=== PATIENT | female | born 1970 | race Caucasian/White ===

== ENCOUNTER → 2018-01-08 09:32 | Outpatient (CLI) | payer OTHER ==
[2015-06-08 07:16] VITALS: BMI 46.0
[~2018-01-08 09:32] MED LIST: ALBUTEROL INH; BAYER CHEWABLE81 MG PO; CARDIZEM30 MG PO; CELEXA20 MG PO; DEMADEX20 MG PO; FERROUS SULFAT325 MG PO; IPRAT-ALBUT 0.5-3 ML UPD; ISOSORBIDE MONO60 M1 PO; K-DUR20 MEQ PO; MINIVELLE TP; NORCO 10/325 TA1 TA1 PO; PRILOSEC20 MG PO; SYMBICORT 16010.2 GM INH; VALIUM10 MG PO; VENTOLIN HFA18 GM INH; VITAMIN B-121000 MCG PO; VITAMIN D250000 UNIT PO; VITAMIN D31000 UNI2 PO; VITAMIN D31000 UNIT PO; VOLTAREN75 MG PO; ZYRTEC10 MG PO
== END | disposition home or self-care (01) ==
LOC: D.CT 09:00
DX: R10.9 Unspecified abdominal pain (principal)

== ENCOUNTER 2018-03-17 10:28 | Day surgery (SDC) | payer OTHER ==
[~2018-03-17] VITALS: Ht 154.9 cm; Wt 109.1 kg
--- NOTE | ~2018-03-17 | OP ---
PATIENT NAME: SU COLLINS MEDICAL RECORD: [id number] :74 [facility] ADMISS[facility] DATE: SURGEON: DEEPA BLOCK DO DATE OF OPERATION: 03/17/2018 PROCEDURE: Colonoscopy with polypectomy and biopsies. INDICATIONS FOR PROCEDURE: Hematochezia, altered bowel function, right lower quadrant abdominal pain. SCOPE: Olympus video pediatric colonoscope. MEDICATIONS: Propofol 280 mg IV per anesthesia. WITHDRAWAL TIME: 6 minutes. ESTIMATED BLOOD LOSS: Minimal. COMPLICATIONS: None. FINDINGS: Informed consent was given. The patient was made comfortable with the above medication. After reaching an adequate level of sedation by slow IV push, the patient was placed on her left side. A digital rectal examination was performed and was normal. The endoscope was then advanced under direct visualization through the rectum to the cecum, confirmed by the presence of the appendiceal orifice and ileocecal valve. The endoscope was slowly withdrawn and mucosa was carefully examined. The prep quality was inadequate to see all areas of the colon due to retained solid stool, which made suction through the endoscope impossible. Approximately 90% of the mucosa was visualized. There was a single polyp found on today's examination. It was located in the sigmoid colon. It was a benign appearing flat polyp, which measured approximately 4 mm in diameter. It was removed using hot forceps in 1 piece and completely retrieved. There was evidence of gycxqdxu-aw-zkzmxf diverticulosis involving the ascending colon, descending colon, and sigmoid colon. There was no evidence of diverticulitis. Retroflexion was performed in the rectum with visualization of grade I internal hemorrhoids, which were not actively bleeding and had no bleeding stigmata. Random biopsies were taken throughout the colon to rule out microscopic colitis or other etiologies, which could explain the patient's symptoms. The endoscope was then withdrawn from the patient. The patient tolerated the procedure well and there were no complications. IMPRESSION: 1. A single sigmoid polyp removed using hot forceps. 2. Rnoetaaa-wc-jjlnkg diverticulosis of the ascending, descending, and sigmoid colon. 3. Grade I internal hemorrhoids without bleeding. PLAN AND RECOMMENDATIONS: 1. Discharge home when recovery parameters are met. 2. High fiber diet. 3. Continue current medications. 4. Follow up biopsy specimen results. 5. Supplement diet with 1-2 tablespoons of fiber daily to help regulate bowels. 6. Recall colonoscopy in 5 years or sooner if needed to evaluate symptoms. OPERATIVE REPORT [id number] SU COLLINS TRANSINT:[id number] Voice Confirmation ID: [id number] DOCUMENT ID: [id number] DEEPA BLOCK DO at 1558 CC: [id number] DICTATION DATE: 03/17/18 1507 HOT POND OPERATOR: 03/17/18 1748 [facility] 03/17/[address] [address]
[~2018-03-17 10:28] MED LIST changes: -BAYER CHEWABLE81 MG PO; -CARDIZEM30 MG PO; -DEMADEX20 MG PO; -FERROUS SULFAT325 MG PO; -IPRAT-ALBUT 0.5-3 ML UPD; -ISOSORBIDE MONO60 M1 PO; -K-DUR20 MEQ PO; -SYMBICORT 16010.2 GM INH; -VENTOLIN HFA18 GM INH; -VITAMIN B-121000 MCG PO; -VITAMIN D250000 UNIT PO; -VITAMIN D31000 UNI2 PO; -VITAMIN D31000 UNIT PO; -ZYRTEC10 MG PO
[2018-03-17] MEDS ORDERED: ISOSORBIDE MONO60 M1 PO (12:51)
[2018-03-17] MEDS ORDERED: K-DUR20 MEQ PO (12:52)
[2018-03-17] MEDS ORDERED: SYMBICORT 16010.2 GM INH (12:52)
[2018-03-17] MEDS ORDERED: VITAMIN B-121000 MCG PO (12:53)
[2018-03-17] MEDS ORDERED: VITAMIN D31000 UNI2 PO (12:54)
[2018-03-17] MEDS ORDERED: FERROUS SULFAT325 MG PO (12:55)
[2018-03-17] MEDS ORDERED: DEMADEX20 MG PO (12:55)
[2018-03-17] MEDS ORDERED: CARDIZEM30 MG PO (12:57)
[2018-03-17] MEDS ORDERED: VITAMIN D250000 UNIT PO (12:58)
[2018-03-17] MEDS ORDERED: VITAMIN D31000 UNIT PO (12:58)
[2018-03-17] MEDS ORDERED: IPRAT-ALBUT 0.5-3 ML UPD (12:59)
[2018-03-17] MEDS ORDERED: ZYRTEC10 MG PO (12:59)
[2018-03-17] MEDS ORDERED: BAYER CHEWABLE81 MG PO (12:59)
[2018-03-17] MEDS ORDERED: VENTOLIN HFA18 GM INH (13:00)
[2018-03-17 13:13] VITALS: Ht 154.9 cm; Wt 109.1 kg
[2018-03-17 13:33] LABS: BASOPHILS 0 % (0-2); EOSINOPHILS 2.4 % (0-7); HEMATOCRIT 36.1 % (36.0-48.0); HEMOGLOBIN 12.3 g/dL (12-16); LYMPHOCYTES 35.8 % (15-50); MCH 34.1 pg (26.0-34.0); MCHC 34.1 g/dL (31.0-37.0); MEAN PLATELET VOLUME 9.3 fL (7.4-10.4); MONOCYTES 5.9 % (2-11); NEUTROPHILS 55.9 % (40-80); PLATELET COUNT 161 10x3/uL (130-400); RBC 3.61 10x6/uL (4.00-5.40); RDW 13.8 % (11.5-14.5); WBC 5.4 10x3/uL (4.8-10.8)
[2018-03-17 13:57] LABS: ANION GAP 14.5 mmol/L (8-16); CALCIUM 8.6 mg/dL (8.5-10.1); CARBON DIOXIDE 23.6 mmol/L (21.0-32.0); CREATININE - SERUM 0.9 mg/dL (0.6-1.3); POTASSIUM - SERUM 4.1 mmol/L (3.5-5.1)
== END 2018-03-17 16:40 | disposition home or self-care (01) ==
LOC: D.OPS 10:28
PROVIDERS: Anesthesiology
DX: K92.1 Melena (principal); R10.31 Right lower quadrant pain; R19.4 Change in bowel habit; K64.8 Other hemorrhoids; K57.30 Diverticulosis of large intestine without perforation or abscess without bleeding; K63.5 Polyp of colon; Z01.812 Encounter for preprocedural laboratory examination

== ENCOUNTER 2018-04-05 05:26 | Day surgery (SDC) | payer OTHER ==
[~2018-04-05] VITALS: Ht 154.9 cm; Wt 113.4 kg
--- NOTE | ~2018-04-05 | OP ---
PATIENT NAME: SU COLLINS MEDICAL RECORD: [id number] :74 LOCATION:[facility] ADMISSION DATE: SURGEON: DEEPA BLOCK DO DATE OF OPERATION: 04/05/2018 PROCEDURE: EGD with biopsies. INDICATIONS FOR PROCEDURE: Melena, nausea, epigastric pain. SCOPE: Olympus video gastroscope. MEDICATIONS: Propofol 140 mg IV per anesthesia. ESTIMATED BLOOD LOSS: Minimal. COMPLICATIONS: None. FINDINGS: Informed consent was given. The patient was made comfortable with the above medication. After reaching an adequate level of sedation by slow IV push, the patient was placed on her left side. The endoscope was advanced under direct visualization through the mouth to the second portion of the duodenum. The upper esophagus appeared normal. In the middle and distal thirds of the esophagus, there appeared to be some streaky erythema consistent with possible reflux esophagitis. The GE junction did not show obvious signs of inflammation. Mid esophageal biopsies were taken to rule out the presence of eosinophilic esophagitis, which could also have a similar appearance. The endoscope was advanced beyond the GE junction into the stomach and retroflexed view of cardia and fundus, which appeared normal. Throughout the body, antrum, and prepyloric regions of the stomach, there were patchy areas of erythema consistent with possible gastritis. Random biopsies were taken with cold forceps to submit for histology and to rule out H. pylori. The endoscope was advanced beyond the pylorus into the duodenum where the bulb, first portion, and second portion of the duodenum appeared normal. The endoscope was then withdrawn from the patient. The patient tolerated the procedure well, and there were no complications. IMPRESSION: 1. Probable mild reflux esophagitis characterized by streaky erythema up through the mid esophagus. Random biopsies were taken to rule out the presence of EoE. 2. Patchy areas of erythema in the stomach consistent with possible gastritis. Biopsies were taken to submit for histology and to rule out Helicobacter pylori. PLAN AND RECOMMENDATIONS: 1. Discharge home when recovery parameters are met. 2. Follow up biopsy specimen results. 3. Regarding the patient's symptoms, will order a right upper quadrant ultrasound to rule out gallbladder pathology as a cause of her abdominal pain and nausea as well as a gastric emptying scan regarding the same symptoms. 4. We will consider a PIPIDA scan pending results of the right upper quadrant ultrasound. 5. Consider increasing omeprazole to 40 mg daily for 30 days to see if this alters symptoms. 6. Further workup pending results of above. OPERATIVE REPORT [id number] SU COLLINS TRANSINT:[id number] Voice Confirmation ID: [id number] DOCUMENT ID: [id number] DEEPA BLOCK DO at 1557 CC: [id number] DICTATION DATE: 04/05/18 0751 RN PRODUCTION: 04/05/18 1231 [facility] 04/05/[address] [address]
[~2018-04-05 05:26] MED LIST changes: +BAYER CHEWABLE81 MG PO; +CARDIZEM30 MG PO; +DEMADEX20 MG PO; +FERROUS SULFAT325 MG PO; +IPRAT-ALBUT 0.5-3 ML UPD; +ISOSORBIDE MONO60 M1 PO; +K-DUR20 MEQ PO; +SYMBICORT 16010.2 GM INH; +VENTOLIN HFA18 GM INH; +VITAMIN B-121000 MCG PO; +VITAMIN D250000 UNIT PO; +VITAMIN D31000 UNI2 PO; +VITAMIN D31000 UNIT PO; +ZYRTEC10 MG PO
[2018-04-05 06:11] LABS: BASOPHILS 0.2 % (0-2); EOSINOPHILS 2.5 % (0-7); HEMOGLOBIN 13.2 g/dL (12-16); IMMATURE GRANULOCYTES 0.2 % (0-5); LYMPHOCYTES 26.8 % (15-50); MCH 33.8 pg (26.0-34.0); MCHC 33.8 g/dL (31.0-37.0); MEAN PLATELET VOLUME 9.2 fL (7.4-10.4); MONOCYTES 7.7 % (2-11); NEUTROPHILS 62.6 % (40-80); PLATELET COUNT 179 10x3/uL (130-400); RDW 13.7 % (11.5-14.5); WBC 5.3 10x3/uL (4.8-10.8)
[2018-04-05 06:25] VITALS: BP 108/64; Ht 154.9 cm; Wt 113.4 kg
[2018-04-05 06:31] LABS: ANION GAP 11.6 mmol/L (8-16); CALCIUM 8.7 mg/dL (8.5-10.1); CARBON DIOXIDE 28.3 mmol/L (21.0-32.0); CREATININE - SERUM 1.1 mg/dL (0.6-1.3); POTASSIUM - SERUM 3.9 mmol/L (3.5-5.1)
== END 2018-04-05 08:45 | disposition home or self-care (01) ==
LOC: D.OPS 05:26
PROVIDERS: Anesthesiology
DX: K92.1 Melena (principal); R10.13 Epigastric pain; Z01.812 Encounter for preprocedural laboratory examination

== ENCOUNTER → 2018-04-13 10:14 | Outpatient (CLI) | payer OTHER ==
[2018-04-05 06:25] VITALS: BMI 47.3
== END | disposition home or self-care (01) ==
LOC: D.US 10:14 → D.NM 11:30
DX: R11.0 Nausea (principal); R10.13 Epigastric pain